=== PATIENT | male | born 1975 | race Caucasian/White ===

== ENCOUNTER 2018-05-21 21:36 | Emergency (ER) | payer MEDICAID, OTHER ==
[2018-05-21 23:12] VITALS: BP 138/93; PULSE 90; RESP 18; TEMP 98; O2SAT 98
--- NOTE | 2018-05-22 01:09 | ED PDOC ---
HPI: General Adult Time Seen by Provider: 05/22/18 00:05 Chief Complaint (Nursing): Abnormal Skin Integrity Chief Complaint (Provider): Rash x 1 week History Per: Patient History/Exam Limitations: no limitations Onset/Duration Of Symptoms: Days Have you had recent travel within the past 21 days to any of the following countries: [place], [place], [place] or [place]?: No Current Symptoms Are (Timing): Still Present Additional Complaint(s): 42 yo male with no medical problems presents for evaluation of rash on entire body for 1 week. Pt reports picking areas of scabbing and seeing worms. Pt denies similar in the past. No fever/chills. PT states girlfriend has similar rash but hers do not have the worms. No fever/chills. Past Medical History Reviewed: Historical Data, Nursing Documentation, Vital Signs Vital Signs: Last Vital Signs Temp 98.0 F 05/21/18 23:09 Pulse 90 05/21/18 23:09 Resp 18 05/21/18 23:09 BP 138/93 H 05/21/18 23:09 Pulse Ox 98 05/21/18 23:09 - Medical History PMH: Back Problems - Surgical History Surgical History: No Surg Hx - Family History Family History: States: No Known Family Hx - Living Arrangements Living Arrangements: With Family - Social History Current smoker - smoking cessation education provided: No - Home Medications Home Medications: Ambulatory Orders Medication Instructions Recorded Cyclobenzaprine HCl [Flexeril] 10 mg PO Q8 #20 tab 10/11/14 Permethrin 5% [Permethrin 5% Cream] 30 g TOP ONCE #30 tube 05/22/18 - Allergies Allergies/Adverse Reactions: Allergies Allergy/AdvReac Type Severity Reaction Status Date / Time No Known Allergies Allergy Verified 05/21/18 23:09 Review of Systems ROS Statement: Except As Marked, All Systems Reviewed And Found Negative Constitutional: Negative for: Fever, Chills Cardiovascular: Negative for: Chest Pain, Palpitations Respiratory: Negative for: Cough, Shortness of Breath Gastrointestinal: Negative for: Nausea, Vomiting, Abdominal Pain Genitourinary Male: Negative for: Dysuria, Frequency Skin: Positive for: Rash Physical Exam - Reviewed Nursing Documentation Reviewed: Yes Vital Signs Reviewed: Yes - Physical Exam Appears: Positive for: Well, Non-toxic, No Acute Distress Head Exam: Positive for: ATRAUMATIC, NORMAL INSPECTION, NORMOCEPHALIC Skin: Positive for: Warm, Rash (Scabbed lesions on the face, trunk and extremities, no worms noted. ). Negative for: Normal Color Eye Exam: Positive for: Normal appearance ENT: Positive for: Normal ENT Inspection Neck: Positive for: Normal, Painless ROM Cardiovascular/Chest: Positive for: Regular Rate, Rhythm Respiratory: Positive for: CNT, Normal Breath Sounds Back: Positive for: Normal Inspection Extremity: Positive for: Normal ROM Neurologic/Psych: Positive for: Alert, Oriented - ECG O2 Sat by Pulse Oximetry: 98 Pulse Ox Interpretation: Normal Medical Decision Making Medical Decision Making: Discussed with Dr. Keller. Disposition - Clinical Impression Clinical Impression: Rash - Disposition Disposition: Routine/Home Disposition Time: 01:09 Condition: GOOD Prescriptions: Permethrin 5% [Permethrin 5% Cream] 30 g TOP ONCE #30 tube Instructions: Skin Rash (DC)
== END 2018-05-22 01:30 | disposition home or self-care (01) ==
LOC: H.ER 21:36
DX: R21 Rash and other nonspecific skin eruption (principal)